=== PATIENT | male | born 1990 | race African-American/Black ===

== ENCOUNTER 2019-02-05 10:14 | Emergency (ER) | payer OTHER ==
--- NOTE | 2019-02-05 11:46 | ED ---
Throat Pain/Nasal Congestion - HPI Summary HPI Summary: A 29 y/o M presents to ED with L upper dental pain onset last night. He says he has a hole in his tooth from when a filling fell out, but the pain worsened a lot last night. He used a maximum dose of an OTC gel, but it did not relieve his pain. The pain is starting to radiate to his other teeth and his lower L teeth. - History of Current Complaint Chief Complaint: EDDentalPain Time Seen by Provider: 02/05/19 11:28 Hx Obtained From: Patient Onset/Duration: Gradual Onset, Lasting Days, Still Present Severity: Severe - Allergies/Home Medications Allergies/Adverse Reactions: Allergies Allergy/AdvReac Type Severity Reaction Status Date / Time pollen extracts Allergy Hives/Diff. Verified 02/05/19 10:25 Breathing/I tching PMH/Surg Hx/FS Hx/Imm Hx Previously Healthy: Yes Sensory History: Denies: Hx Legally Blind, Hx Deafness Opthamlomology History: Denies: Hx Legally Blind Neurological History: Denies: Hx Dementia Infectious Disease History: No Infectious Disease History: Denies: Traveled Outside the [place] in Last 30 Days - Social History Occupation: Unemployed - OTHER Lives: With Family Review of Systems Negative: Fever, Chills Negative: Erythema Positive: Dental Pain. Negative: Sore Throat Negative: Chest Pain Negative: Shortness Of Breath, Cough Negative: Abdominal Pain, Vomiting, Nausea Negative: dysuria, hematuria Negative: Myalgia, Edema Negative: Rash Neurological: Other - neg: dizziness All Other Systems Reviewed And Are Negative: Yes Physical Exam - Summary Physical Exam Summary: General: Well appearing, no distress Dental: L upper maxillary 2nd molar is significantly decayed but shows no outward signs of abscess HENT: No trismus Cardiovascular: Skin is well perfused Pulmonary: No respiratory distress, no tachypnea Abdomen: Non-distended Skin: Warm, pink, dry Psych: Normal affect Neuro: A&Ox3 Triage Information Reviewed: Yes Vital Signs On Initial Exam: Initial Vitals Temp Pulse Resp BP Pulse Ox 98.9 F 68 17 145/94 98 02/05/19 10:24 02/05/19 10:24 02/05/19 10:24 02/05/19 10:24 02/05/19 10:24 Vital Signs Reviewed: Yes Diagnostics - Vital Signs Vital Signs Temp Pulse Resp BP Pulse Ox 02/05/19 10:24 98.9 F 68 17 145/94 98 - Laboratory Lab Statement: Any lab studies that have been ordered have been reviewed, and results considered in the medical decision making process. Re-Evaluation - Re-Evaluation 1 Re-Evaluation Time: 11:45 Change: Unchanged Comment: Discussing plans for discharge and need to f/u with his dentist. EENT Course/Dx - Course Course Of Treatment: A 29 y/o M presents to ED with L upper dental pain onset last night. He says he has a hole in his tooth from when a filling fell out, but the pain worsened a lot last night. He used a maximum dose of an OTC gel, but it did not relieve his pain. The pain is starting to radiate to his other teeth and his lower L teeth. PE shows the L upper maxillary 2nd molar is significantly decayed but shows no outward signs of abscess. No trismus. Will D /C home with Ibuprofen to f/u with his dentist in 2-3 days. - Diagnoses Provider Diagnoses: Pain, dental Discharge - Sign-Out/Discharge Documenting (check all that apply): Patient Departure - D/C Patient Received Moderate/Deep Sedation with Procedure: No - Discharge Plan Condition: Stable Disposition: HOME Prescriptions: Ibuprofen TAB* [Motrin TAB* 600 MG] 600 mg PO Q6H PRN #30 tab PRN Reason: Pain Scale 6-10 Penicillin VK TAB* [Penicillin VK 250 mg Tab*] 500 mg PO QID #40 tab Patient Education Materials: Ibuprofen (By mouth), Toothache (ED) Referrals: [facility] [Outside] Additional Instructions: Follow up with your dentist in 2-3 days. Apply a warm tea bag to the area, gargle with salt water and eat a soft diet as needed. Return to the emergency department for changing or worsening symptoms. - Billing Disposition and Condition Condition: STABLE Disposition: Home - Attestation Statements Document Initiated by Scribe: Yes Documenting Scribe: Kelly Goddard Provider For Whom Scribe is Documenting (Include Credential): Dr. Masoud Slade MD Scribe Attestation: Kelly Ortiz, scribed for Dr. Masoud Slade MD on 02/06/19 at 1418. Scribe Documentation Reviewed: Yes Provider Attestation: The documentation as recorded by the scribe, Kelly Goddard accurately reflects the service I personally performed and the decisions made by me, Dr. Masoud Slade MD Status of Scribe Document: Viewed
[2019-02-05 11:52] VITALS: BP 130/78
== END 2019-02-05 11:51 | disposition home or self-care (01) ==
LOC: ED 10:14
DX: K08.89 Other specified disorders of teeth and supporting structures (principal); K02.9 Dental caries, unspecified
CPT/HCPCS: 99282